=== PATIENT | male | born 1945 | race Caucasian/White ===

== ENCOUNTER 2017-01-29 05:00 | Inpatient (IN) ==
--- NOTE | 2017-01-10 15:15 | EKG Report ---
Stationary ECG Study [facility] Test Date: 01/10/2017 3:15:54 PM Pat Name: ANAT MOLINA Department: Room: Gender: M [employer] Operator: SEAN 01-[birth year]17 : 1945 Requested by: Cresencio Castillo Order Number: [id number] Reading MD: MERISSA ESPINOZA Intervals Palmer Rate: 60 P: 68 SD: 174 QRS: -25 QRSD: 130 T: -12 QT: 428 QTc: 429 Interpretive Statements SINUS RHYTHM BORDERLINE LEFT AXIS DEVIATION MODERATE INTRAVENTRICULAR CONDUCTION DELAY MODERATE VOLTAGE CRITERIA FOR LVH, CONSIDER NORMAL VARIANT NONSPECIFIC T-WAVE ABNORMALITY Electronically Signed On 01-11-17 08:29:57 CDT by MERISSA ESPINOZA [email or web address]
[2017-01-10 15:17] LABS: Basophils # 0.1 10*3/uL (0.0-0.2); Basophils % 1.1 % (0.0-0.8); Eosinophils # 0.2 10*3/uL (0.0-0.87); Eosinophils % 2.5 % (0.00-10.9); Hematocrit 38.5 VOL% (42.0-52.0); Hemoglobin 13.3 GM/DL (14.0-18.0); Immature Granulocytes % 0.3 %; Immature Granulocytes Absolute 0.02 #; Lymphocytes # 2.5 10*3/uL (1.4-4.0); Lymphocytes % 32.8 % (21.2-54.2); Mean Corpuscular HGB Conc 34.5 GM/DL (32-36); Mean Corpuscular Hemoglobin 29 PG (27-34); Mean Corpuscular Volume 84.4 FL (87-102); Mean Platelet Volume 10.2 FL (9.6-12.0); Monocytes # 0.7 10*3/uL (0.11-0.8); Monocytes % 8.7 % (1.7-12.7); Neutrophils # 4.1 10*3/uL (1.4-7.4); Neutrophils % 54.6 % (38.7-73.9); Platelet Count 283 T/CUMM (130-400); Red Blood Count 4.56 MC/CUMM (3.8-5.5); Red Cell Distribution Width 14.7 % (9.3-17.3); White Blood Count 7.5 T/CUMM (4-12)
[2017-01-10 15:26] LABS: PT Patient Result 10.7 SECS; Partial Thromboplastin Time 27.8 SECS (0-40)
[2017-01-10 15:49] LABS: Apearance,Urine CLEAR (Clear); Bilirubin,Urine Negative (Negative); Blood, Urine Negative (Negative); Glucose,Urine (UA) Negative (Negative); Ketones,Urine 5 mg/dL (Negative); Mucus,Urine Occasional /LPF (Occasional); Nitrite,Urine Negative (Negative); Protein,Urine Negative; RBC,Urine <1 /HPF (0-4); Urine Color Yellow (Yellow); Urine Urobilinogen < 2.0 EU/DL (0.2-1.0); WBC,Urine <1 /HPF (0-6)
--- NOTE | 2017-01-10 16:26 | XRay Report ---
XR chest 2V Indication: Preop evaluation Comparison: Chest x-ray dated April 21, 2010 Technique: Frontal and lateral views of the chest. Findings: The cardiomediastinal silhouette is stable in configuration. Chronic change of the lungs without focal consolidation, pleural effusion, or pneumothorax. Visualized osseous and surrounding soft tissue structures appear grossly unchanged. Multilevel bridging osteophytes of the thoracic spine. Rectangular metallic density projects over the left upper quadrant on frontal view and not seen on lateral view, most likely outside the patient. Clinically correlate. IMPRESSION: Stable chest x-ray without acute cardiopulmonary process demonstrated. PROCEDURE INTERPRETED AT [facility] DEPARTMENT OF RADIOLOGY Final Report Signed by: Dr Juan Carlos Yañez
[2017-01-10 16:29] LABS: Albumin 4.1 G/DL (3.4-5.0); Bilirubin,Total 0.6 MG/DL (0.2-1.0); Potassium 4.7 MMOL/L (3.5-5.1); Total Protein 6.3 G/DL (6.4-8.3)
[2017-01-29] MEDS ORDERED: FAMOTIDINE 20 MG TABLET PO ONE (06:00)
[2017-01-29] MEDS ORDERED: LORazepam 0.5 MG TABLET PO ONE (06:00)
[2017-01-29] MEDS ORDERED: FAMOTIDINE 20 MG TABLET ONE (06:02)
[2017-01-29] MEDS ORDERED: CLINDAMYCIN INJ 0 ML IV ONE (06:02)
[2017-01-29] MEDS ORDERED: VANCOMYCIN 1,000 MG VIAL ONE (06:02)
[2017-01-29] MEDS ORDERED: LORazepam 0.5 MG TABLET ONE (06:02)
[2017-01-29] MEDS ORDERED: LACTATED RINGERS 1,000 ML IV SCH (06:30)
[2017-01-29] MEDS ORDERED: CLINDAMYCIN INJ 900 MG in PREMIX 1 EACH IV ONE (06:30)
[2017-01-29] MEDS ORDERED: VANCOMYCIN INJ 1,000 MG in SODIUM CHLORIDE 0.9% 250 ML IV ONE ×2 (06:30→16:30)
[2017-01-29] MEDS ORDERED: TRANEXAMIC ACID 1,000 MG/10 ML VIAL IV ONE (06:42)
--- NOTE | 2017-01-29 06:51 | History and Physical Update ---
History and Physical Update - History and Physical H&P was reviewed, the patient examined and there: are no changes in the patients condition since last H&P was completed.
[2017-01-29] MEDS ORDERED: BACITRACIN OINT 0.9 GM PACK TOP ONE (06:57)
[2017-01-29] MEDS ORDERED: LIDOCAINE 2% 5 ML VIAL ONE (07:04)
[2017-01-29] MEDS ORDERED: PROPOFOL 200 MG/20 ML VIAL IV ONE (07:04)
[2017-01-29] MEDS ORDERED: CLINDAMYCIN INJ 50 ML IV ONE (07:29)
[2017-01-29] MEDS ORDERED: MORPHINE 2 MG/1 ML SYRINGE IV PRN ×2 (08:29)
[2017-01-29] MEDS ORDERED: ONDANSETRON 4 MG/2 ML VIAL IV PRN (08:29)
[2017-01-29] MEDS ORDERED: MAGNESIUM HYDROXIDE SUSP 30 ML UDCUP PO PRN (08:29)
[2017-01-29] MEDS ORDERED: oxyCODONE IR 5 MG TABLET PO PRN ×2 (08:29)
[2017-01-29] MEDS ORDERED: INSULIN ASPART PROTAMINE/ASPART 70/30 100 UNIT/ML SUBCUT SCH (08:30)
[2017-01-29] MEDS ORDERED: ROPIVACAINE 0.5% 30 ML VIAL ONE (08:32)
--- NOTE | 2017-01-29 08:35 | Operative Note ---
Date of procedure: 01/29/17 Procedure: DIAGNOSIS: Right knee primary osteoarthrosis PROCEDURE: Right total knee arthroplasty (cpt #20907) SURGEON: [facility] RN: Noel Cramer ANESTHESIA: Spinal with a postoperative adductor canal block PROCEDURE and FINDINGS: After adequate was induced, the patient's knee was prepped and draped in the usual sterile fashion. The limb was exsanguinated with Esmarch. Tourniquet was inflated to 300 mmHg. A median parapatellar approach was made. Femur was cut using an intramedullary guide and a 4 in 1 cutting jig in 5 degrees of valgus. ACL and menisci were excised. Tibia was cut using intramedullary guide. Patella was cut using freehand technique. Components were trialed. Tibial fin was prepared. Components are cemented in place using Palacos cement and modern cementing techniques. Cement was removed. A 1/8 inch Hemovac drain was placed. The knee was well-balanced and full range of motion with central tracking patella. Deep layers closed with 0-0 Vicryl. Superficial layers were closed with 2-0 and 3-0 Vicryl. Skin was approximated with romina. Bacitracin and a sterile dressing was applied. Patient was transferred to recovery. A postoperative adductor canal block is anticipated. COMPONENTS: The [place] Person[employer] system was used. 10 CR femur, F natural tibia, 10 mm liner, 35 mm patella TOURNIQUET TIME: 38 minutes Surgeon / Physician: Cresencio Guaman Jr. Results - Labs CBC & BMP: 01/10/17 15:05 01/10/17 15:05 Discharge Plan - Discharge Medications No Action Pantoprazole Tab [Protonix Tab] 40 mg PO DAILY Amiodarone Tab [Cordarone Tab] 200 mg PO BEDTIME metFORMIN [Glucophage] 500 mg PO BID W/MEALS Quinapril HCl 40 mg PO DAILY Magnesium Chloride [Magnesium Dr] 64 mg PO DAILY Aspirin [Ecotrin] 81 mg PO QOTHER DAY Insulin Aspart Prot/Asp 70/30 [NovoLOG Mix 70/30] 18 unit SUBCUT DIRECTED Lovastatin 20 mg PO BEDTIME - Follow Up or Referral - Forms/Instructions
[2017-01-29] MEDS: LACTATED RINGERS 1,000 ML IV SCH ×2 (08:40→23:55)
[2017-01-29] MEDS ORDERED: MIDAZOLAM 2 MG/2 ML VIAL ONE (08:57)
[2017-01-29] MEDS ORDERED: ACETAMINOPHEN 1,000 MG/100 ML VIAL IV ONE (08:57)
[2017-01-29] MEDS ORDERED: LACTATED RINGERS 1,000 ML IV ONE (08:57)
[2017-01-29] MEDS ORDERED: SODIUM CHLORIDE 0.9% 100 ML IV ONE (08:57)
[2017-01-29] MEDS ORDERED: SODIUM CHLORIDE 0.9% 250 ML IV ONE (08:57)
[2017-01-29] MEDS: KETOROLAC 30 MG/1 ML VIAL IV SCH ×3 (09:25→21:26)
[2017-01-29] MEDS ORDERED: KETOROLAC 30 MG/1 ML VIAL ONE (09:26)
--- NOTE | 2017-01-29 09:42 | XRay Report ---
XR knee 2V RT Clinical Information: Joint replacement (right knee) Comparison: 08/14/2016 radiograph Findings: Postsurgical changes of interval right total knee arthroplasty noted. Overlying surgical drains and romina noted. Soft tissue thickening is noted, as expected. Impression: Postoperative findings without acute complication.. PROCEDURE INTERPRETED AT [facility] DEPARTMENT OF RADIOLOGY Final Report Signed by: Porfirio Boyd
[2017-01-29] MEDS ORDERED: DEXTROSE 50% 25 GM/50 ML VIAL IV PRN (10:08)
[2017-01-29] MEDS ORDERED: GLUCAGON 1 MG VIAL IM PRN (10:08)
--- NOTE | 2017-01-29 10:43 | Pulmonology Consult Note ---
History of Present Illness Chief complaint: Postop right total knee. Spinal anesthesia History of present illness: Mr. Sepulveda is a 71 year old white male whom I been asked to see and manage his medical problems and is postop. Patient was seen along with his . Earlier this morning he had spinal anesthesia for right total knee replacement. At the present time the patient is awake and alert he is in no apparent distress. He is concerned that he may have constipation. His review of systems is otherwise negative at present time. Allergies. Penicillins Home medicines. See below. Metformin. Quinapril Prevacid magnesium lovastatin insulin 7030 aspirin amiodarone 200 mg daily. Pneumovax. 07/23/2015. Influenza vaccine 05/23/2016 Past history. Insulin-dependent diabetes mellitus. Hyperlipidemia. Atrial fib. High blood pressure. Gastroesophageal reflux. Previous knee surgery. Family history. High blood pressure. Diabetes mellitus Social history. Former smoker. . Bachelor's degree. Patient saw Dr. Cayetano brewster 10/27/[address] José Conti 03/14/16 Chest x-ray. 01/10/2017. Chronic change of the lungs without focal consolidation, pleural effusion or pneumothorax. Visualized osseous and surrounding soft tissue structures are unchanged with multilevel bridging osteophytes of the thoracic spine. Reticular metallic density over the left upper quadrant on frontal view. Not seen on lateral view. EKG. 01/11/2017 regular sinus rhythm. Incomplete right bundle branch. Left bundle branch block Lab. 01/10/2017. H&H 13.3/38.5. Platelets 283,000. White count 7500. INR 1.0. Electrolytes are normal. Creatinine is 1.40 with a BUN of 19. Glucose 184. Total protein 6.3. Albumin 4.1. Globulin 2.2. Alkaline Letty transaminases and bilirubin are normal. Urinalysis is normal Physical exam. Vital signs. See below. Psychiatric. Oriented 3. Awake and alert. No distress. Head eyes ears nose and throat are normal. No swelling of the lips or tongue. Neck. Symmetrical. No mass. Thyroid was not palpated no meningismus. Lymphatics. No submandibular cervical supraclavicular or epitrochlear adenopathy. Chest. Clear Heart irregular at 75 bpm Abdomen. Nontender. Bowel sounds are hypoactive and rectal deferred Extremities. No edema. Postsurgical repair of right knee Neurologic cranial nerves are intact. Patient has some movement of all 4 extremities. Minimal movement of both lower Skin of the face and hands was normal. No other areas examined. The remainder the physical exam is negative Impression. 1. Postop right total knee replacement. 2. Degenerative joint disease 3. Diabetes mellitus 4. High blood pressure 5. Atrial fib 6. Gastroesophageal reflux disease Plan. 1. Continue home medicines. 2. Monitor glucoses 3. monitor heart rate 4. Note tendency towards obstipation with pain medicine 5. Deep venous thrombophlebitis prevention protocol 6. Follow-up lab Home Medications Medication Instructions Recorded Confirmed Type Amiodarone Tab [Cordarone Tab] 200 mg PO BEDTIME 06/03/16 01/29/17 History Aspirin [Ecotrin] 81 mg PO QOTHER DAY 06/03/16 01/29/17 History Magnesium Chloride [Magnesium Dr] 64 mg PO DAILY 06/03/16 01/29/17 History Pantoprazole Tab [Protonix Tab] 40 mg PO DAILY 06/03/16 01/29/17 History Quinapril HCl 40 mg PO DAILY 06/03/16 01/29/17 History metFORMIN [Glucophage] 500 mg PO BID W/MEALS 06/03/16 01/29/17 History Lovastatin 20 mg PO BEDTIME 08/14/16 01/29/17 History Insulin Aspart Prot/Asp 70/30 0 unit SUBCUT BID W/MEALS PRN 01/11/17 01/29/17 History [NovoLOG Mix 70/30] Allergies Allergy/AdvReac Type Severity Reaction Status Date / Time Penicillins Allergy Intermediate Fainting Verified 01/29/17 06:21 sweaty clammy Exam (Pulmonay) H&P - Constitutional Vitals: Period Temp Pulse Resp BP Sys/Khanna Pulse Ox Last 24 Hr 97.1 F-98 F 43-69 14-20 101-157/58-90 97-100 Medical,Surgical,& Family Hx - Medical History Cardio: History of: Cardiac Dysrhythmia (paroxysmal A. fib), Hypertension Neurology: No history of: Seizures Endocrine: History of: Diabetes Mellitus (IDDM) Respiratory: No history of: COPD, Respiratory Problems (HAD FLU VACCINE AND PNEUM 13 VACCINE) Genitourinary: History of: Kidney Stones Hematology: No history of: Blood Transfusion Reaction Other: History of: Miscellaneous Medical Problems (PATIENT DOESNT TOLERATE OPIATES) No history of: Anesthesia Reactions - Surgical History Cardiac Surgeries: Patient Denies: Cardiac Catheterization Thoracic Surgeries: Patient denies;: Organ Transplant, Lobectomy HEENT Surgeries: Surgical HX of: Eye Surgery (Bilateral Cataracts) Abdominal Surgeries: Surgical HX of: [facility] Orthopedic Surgeries: Surgical HX of;: Total Knee Replacement ( 07/2016) - Family History Family History: Reports;: Family Cancer (Grandmother-ovarian) - Social History Smoking Status: Never smoker Frequency of Alcohol Use: None Type of Drug Use: None Results - Labs CBC & BMP: 01/10/17 15:05 01/10/17 15:05
[2017-01-29] MEDS: QUINAPRIL 20 MG TABLET PO SCH (11:27)
[2017-01-29] MEDS: INSULIN LISPRO 100 UNIT/ML SUBCUT SCH ×3 (12:25→21:47)
--- NOTE | 2017-01-29 12:39 | Anesthesia Post-Op ---
Anesthesia Post OP - Post Ansesthetic Evaluation Patient seen in post op: Yes Resp: within normal limits CV: within normal limits Mental: within normal limits Temp: within normal limits [id number]: within normal limits Nausea and Vomiting: within normal limits Pain: within normal limits
--- NOTE | 2017-01-29 14:13 | Orthopedic Progress Note ---
Orthopedics - Subjective Interval history: comfortable post op. nv ok. continue per orders. Exam - Constitutional Vitals: Period Temp Pulse Resp BP Sys/Khanna Pulse Ox Last 24 Hr 97.1 F-98 F 42-69 14-20 101-158/58-90 95-100 Results - Labs CBC & BMP: 01/10/17 15:05 01/10/17 15:05
[2017-01-29] MEDS: ACETAMINOPHEN 500 MG TABLET PO SCH ×2 (15:49→18:32)
[2017-01-29] MEDS: DOCUSATE SODIUM 100 MG CAPSULE PO SCH ×2 (15:50→21:27)
[2017-01-29] MEDS: PANTOPRAZOLE 40 MG TABLET PO SCH (15:50)
[2017-01-29] MEDS: MAGNESIUM CHLORIDE 64 MG TABLET PO SCH (15:51)
[2017-01-29] MEDS: CLINDAMYCIN INJ 900 MG in PREMIX 1 EACH IV SCH ×2 (15:54→21:26)
[2017-01-29] MEDS: metFORMIN 500 MG TABLET PO SCH (17:19)
[2017-01-29] MEDS: AMIODARONE 200 MG TABLET PO SCH ×2 (21:26→21:28)
[2017-01-29] MEDS: LOVASTATIN 20 MG TABLET PO SCH (21:26)
[2017-01-30] MEDS: ACETAMINOPHEN 500 MG TABLET PO SCH ×2 (00:59→06:51)
[2017-01-30] MEDS: FONDAPARINUX 2.5 MG/0.5 ML SYRINGE SUBCUT SCH (02:43)
[2017-01-30] MEDS: KETOROLAC 30 MG/1 ML VIAL IV SCH (02:43)
[2017-01-30 06:08] LABS: Basophils % 0.5 % (0.0-0.8); Eosinophils # 0.1 10*3/uL (0.0-0.87); Eosinophils % 2.1 % (0.00-10.9); Hematocrit 33.4 VOL% (42.0-52.0); Hemoglobin 11.3 GM/DL (14.0-18.0); Immature Granulocytes % 0.3 %; Immature Granulocytes Absolute 0.02 #; Lymphocytes # 1.5 10*3/uL (1.4-4.0); Mean Corpuscular HGB Conc 33.8 GM/DL (32-36); Mean Corpuscular Hemoglobin 30 PG (27-34); Mean Corpuscular Volume 87.2 FL (87-102); Mean Platelet Volume 10.5 FL (9.6-12.0); Monocytes # 0.7 10*3/uL (0.11-0.8); Monocytes % 11.8 % (1.7-12.7); Neutrophils # 3.5 10*3/uL (1.4-7.4); Neutrophils % 60.3 % (38.7-73.9); Platelet Count 198 T/CUMM (130-400); Red Blood Count 3.83 MC/CUMM (3.8-5.5); Red Cell Distribution Width 14.7 % (9.3-17.3); White Blood Count 5.9 T/CUMM (4-12)
[2017-01-30 06:36] LABS: Calcium 7.8 MG/DL (8.5-10.1); Osmolality,Calculated 282.3 MOS/KG (273-304); Potassium 4.5 MMOL/L (3.5-5.1)
--- NOTE | 2017-01-30 07:33 | Orthopedic Progress Note ---
Orthopedics - Subjective Interval history: comfortable nv ok. dressing dry. mobilize with therapy. plan for swing bed Exam - Constitutional Vitals: Period Temp Pulse Resp BP Sys/Khanna Pulse Ox Last 24 Hr 97.1 F-98.0 F 42-69 14-18 101-158/48-87 95-100 Results - Labs CBC & BMP: 01/30/17 05:11 01/30/17 05:11
[2017-01-30] MEDS: QUINAPRIL 20 MG TABLET PO SCH (08:09)
[2017-01-30] MEDS: INSULIN LISPRO 100 UNIT/ML SUBCUT SCH ×4 (08:11→21:44)
[2017-01-30] MEDS: metFORMIN 500 MG TABLET PO SCH ×2 (08:13→17:57)
[2017-01-30] MEDS: MAGNESIUM CHLORIDE 64 MG TABLET PO SCH (08:13)
[2017-01-30] MEDS: PANTOPRAZOLE 40 MG TABLET PO SCH (08:14)
[2017-01-30] MEDS: DOCUSATE SODIUM 100 MG CAPSULE PO SCH ×2 (08:14→20:43)
[2017-01-30] MEDS ORDERED: ACETAMINOPHEN 325 MG TABLET PO PRN (08:30)
--- NOTE | 2017-01-30 10:17 | Pulmonology Progress Note ---
Pulmonary - PN: Subj Interval history: This is a 71-year-old white male whom I saw in consultation on 01/29/2017. My impressions were. 1.. Postop right total knee replacement. 2. Degenerative joint disease 3. Diabetes mellitus 4. High blood pressure 5. Atrial fib 6. Gastroesophageal reflux disease 01/30/2017. Patient was seen along with his and physical therapy. He is doing very well he had no new complaints. He did not get his insulin yesterday and his glucoses were up. Creatinine is 1.1 with a BUN of 12. Electrolytes are normal. H&H dropped to 11.3/33.4. White count is 5900 with 60 segs 25 lymphs and 12 monos. Platelets are 198,000. Physical exam. Vital signs. See below. Afebrile Psychiatric. Oriented 3 General. No distress Neurologic. Cranial nerves are intact. Long track motor functions intact Face. Symmetrical. No edema of the tongue are lips. Neck. Symmetrical. No meningismus. Chest. Clear Heart. No gallop Abdomen. Nondistended nontender. Rare bowel sounds Extremities. Postop. No evidence of deep venous thrombophlebitis. The remainder the exam is negative Plan. 01/29/2017 1. Continue home medicines. 2. Monitor glucoses 3. monitor heart rate 4. Note tendency towards obstipation with pain medicine 5. Deep venous thrombophlebitis prevention protocol 6. Follow-up lab 01/30/2017. 1. Monitor glucose. 2. CBC in the morning 3. Continue present medicines and treat meant Exam (Progress Note) - Constitutional Vitals: Period Temp Pulse Resp BP Sys/Khanna Pulse Ox Last 24 Hr 97.1 F-98.0 F 42-59 16-18 106-158/48-87 94-100 Results - Labs CBC & BMP: 01/30/17 05:11 01/30/17 05:11
[2017-01-30] MEDS: CELECOXIB 200 MG CAPSULE PO SCH (15:23)
[2017-01-30] MEDS: LACTATED RINGERS 1,000 ML IV SCH (17:58)
[2017-01-30] MEDS: LOVASTATIN 20 MG TABLET PO SCH (20:43)
[2017-01-30] MEDS: AMIODARONE 200 MG TABLET PO SCH (20:44)
[2017-01-31] MEDS: FONDAPARINUX 2.5 MG/0.5 ML SYRINGE SUBCUT SCH (03:15)
[2017-01-31 06:13] LABS: Basophils % 0.5 % (0.0-0.8); Eosinophils # 0.2 10*3/uL (0.0-0.87); Eosinophils % 2.8 % (0.00-10.9); Hematocrit 33.5 VOL% (42.0-52.0); Hemoglobin 11.3 GM/DL (14.0-18.0); Immature Granulocytes % 0.6 %; Immature Granulocytes Absolute 0.04 #; Lymphocytes # 1.6 10*3/uL (1.4-4.0); Lymphocytes % 24.9 % (21.2-54.2); Mean Corpuscular HGB Conc 33.7 GM/DL (32-36); Mean Corpuscular Hemoglobin 29 PG (27-34); Mean Platelet Volume 10.6 FL (9.6-12.0); Monocytes # 0.8 10*3/uL (0.11-0.8); Monocytes % 12.3 % (1.7-12.7); Neutrophils # 3.8 10*3/uL (1.4-7.4); Neutrophils % 58.9 % (38.7-73.9); Platelet Count 206 T/CUMM (130-400); Red Blood Count 3.85 MC/CUMM (3.8-5.5); Red Cell Distribution Width 14.6 % (9.3-17.3); White Blood Count 6.5 T/CUMM (4-12)
[2017-01-31 06:43] LABS: Hypochromasia Slight
--- NOTE | 2017-01-31 07:43 | Discharge Summary ---
Hospital Course - Hospital Course Hospital Course: Will Sepulveda was admitted after undergoing an uncomplicated right total knee replacement. He recieved perioperative DVT and antimicrobial prophylaxis. He received physical therapy. He was discharged to inpatient rehabilitation postoperative day #2 in stable condition. His dressing is clean, dry and intact. He can perform straight leg raise. Discharge Plan - Discharge Data Disposition: Disch/Xfer to Snf Condition at Discharge: Stable Discharge Diet: diabetic diet Activity: ambulate only with your walker Hygiene: may shower Weight Bearing at Discharge: weight bear as tolerated Driving: not until seen by doctor - Discharge Medications New Insulin Lispro [HumaLOG] See Protocol SUBCUT ACHS unit Fondaparinux [Arixtra] 2.5 mg SUBCUT Q24H 10 Days Continue Pantoprazole Tab [Protonix Tab] 40 mg PO DAILY Amiodarone Tab [Cordarone Tab] 200 mg PO BEDTIME metFORMIN [Glucophage] 500 mg PO BID W/MEALS Quinapril HCl 40 mg PO DAILY Magnesium Chloride [Magnesium Dr] 64 mg PO DAILY Insulin Aspart Prot/Asp 70/30 [NovoLOG Mix 70/30] 0 unit SUBCUT BID W/MEALS PRN PRN Reason: Glucose Management Lovastatin 20 mg PO BEDTIME Discontinued Aspirin [Ecotrin] 81 mg PO QOTHER DAY - Follow Up or Referral - Forms/Instructions Additional Discharge Instructions: Daily dry dressing changes. Weightbearing as tolerated. CPM for 3 weeks. Arrange walker and bedside commode for home use. Wear SARATH hose for 1 month. Discontinue romina and Steri-Strip wound on February 10, 2017. Follow-up appointment in 4 weeks. Prescription for [place] 7.5 with 30 tablets was written. Restart aspirin 81 mg when Arixtra is stopped.. Exam - Constitutional Vitals: Period Temp Pulse Resp BP Sys/Khanna Pulse Ox Last 24 Hr 96.9 F-98.1 F 54-64 16-18 132-153/63-79 97-99 Discharge Results Procedures and tests throughout hospitalization: Pending Orders 02/01/17 04:00 Comp Blood Count Auto Diff IN AM Labs on day of discharge: Labs from last 24 hours 01/31/17 01/31/17 0717 07:14 05:49 20:11 WBC 6.5 RBC 3.85 Hgb 11.3 L Hct 33.5 L MCV 87.0 MCH 29 MCHC 33.7 RDW 14.6 Plt Count 206 MPV 10.6 Neut % (Auto) 58.9 Lymph % (Auto) 24.9 Loup % (Auto) 12.3 Eos % (Auto) 2.8 Baso % (Auto) 0.5 Neut # (Auto) 3.8 Lymph # (Auto) 1.6 [place]oup # (Auto) 0.8 Eos # (Auto) 0.2 Baso # (Auto) 0.0 Immature Gran % 0.6 Nucleated RBC % 0.0 Immature Gran # 0.04 Nucleated RBCs # 0.00 Hypochromasia Slight POC Glucose 143 H 203 H 01/30/17 01/30/17 01/30/17 15:15 13:16 10:59 WBC RBC Hgb Hct MCV MCH MCHC RDW Plt Count MPV Neut % (Auto) Lymph % (Auto) [place]oup % (Auto) Eos % (Auto) Baso % (Auto) Neut # (Auto) Lymph # (Auto) Loup # (Auto) Eos # (Auto) Baso # (Auto) Immature Gran % Nucleated RBC % Immature Gran # Nucleated RBCs # Hypochromasia POC Glucose 110 H 111 H 77 DS: Provider Date of admission: 01/29/17 05:40 Primary care physician: Cresencio Guaman Jr., Attending physician on admission: Cresencio Guaman Jr., Consults: 01/29/17 08:30 Consult to Case Mgmt/Social Srvs [CONS] Routine Reason for Case Mgmt/Social Srvs: Rehab Home Health Equipment Consult Comment: Bedside Commode deliver RM 324 Wed Morning before D/C; Pt 6ft 3in 311lbs Consult to Occupational Therapy [CONS] Routine Reason for Occupational Therapy: Evaluate and Treat Consult Comment: ADL's Consult to Physical Therapy [CONS] Routine Reason for Physical Therapy: Evaluate and Treat Gait Training Start Therapy: Today 01/29/17 10:05 Consult to Physician [CONS] Routine Comment: Consulting Provider: Ruben Rudolph Consulting Provider Notified: Yes When should Consulting Provider be notified: Now Person Notified: ralph piña Date Notified: 01/29/17 Time Notified: 10:07 01/30/17 18:44 Consult to Outpatient Therapy [CONS] Routine Reason for Outpatient Therapy: Physical Therapy Consult Comment: Pt is going to R f/Inpatient Rehab then set up OP Rehab @ [facility] OP Discharging clinician: Cresencio Guaman Jr., Expected date of discharge: 01/31/17
[2017-01-31] MEDS: INSULIN LISPRO 100 UNIT/ML SUBCUT SCH ×2 (08:42→13:26)
[2017-01-31] MEDS: PANTOPRAZOLE 40 MG TABLET PO SCH (09:05)
[2017-01-31] MEDS: MAGNESIUM CHLORIDE 64 MG TABLET PO SCH (09:05)
[2017-01-31] MEDS: DOCUSATE SODIUM 100 MG CAPSULE PO SCH (09:05)
[2017-01-31] MEDS: QUINAPRIL 20 MG TABLET PO SCH (09:06)
[2017-01-31] MEDS: metFORMIN 500 MG TABLET PO SCH (09:06)
[2017-01-31] MEDS: CELECOXIB 200 MG CAPSULE PO SCH (09:55)
--- NOTE | 2017-01-31 11:00 | Pulmonology Progress Note ---
Pulmonary - PN: Subj Interval history: This is a 71-year-old white male whom I saw in consultation on 01/29/2017. My impressions were. 1.. Postop right total knee replacement. 2. Degenerative joint disease 3. Diabetes mellitus 4. High blood pressure 5. Atrial fib 6. Gastroesophageal reflux disease 01/30/2017. Patient was seen along with his and physical therapy. He is doing very well he had no new complaints. He did not get his insulin yesterday and his glucoses were up. Creatinine is 1.1 with a BUN of 12. Electrolytes are normal. H&H dropped to 11.3/33.4. White count is 5900 with 60 segs 25 lymphs and 12 monos. Platelets are 198,000. 01/31/2017. This patient is usually very stoic. Today he is complaining of pain in his right knee. He was late getting his pain pill and have asked staff to give him another 1 immediately. Otherwise he has no complaints. He seen along with his . His chest is clear and his heart is regular. H&H is stable at 11.3/33.5. White count 6500 with normal differential and platelets of 206,000. Glucoses have come under excellent control. Physical exam. Vital signs. See below. Afebrile Psychiatric. Oriented 3 General. No distress Neurologic. Cranial nerves are intact. Long track motor functions intact Face. Symmetrical. No edema of the tongue are lips. Neck. Symmetrical. No meningismus. Chest. Clear Heart. No gallop Abdomen. Nondistended nontender. Rare bowel sounds Extremities. Postop. No evidence of deep venous thrombophlebitis. The remainder the exam is negative Plan. 01/29/2017 1. Continue home medicines. 2. Monitor glucoses 3. monitor heart rate 4. Note tendency towards obstipation with pain medicine 5. Deep venous thrombophlebitis prevention protocol 6. Follow-up lab 01/30/2017. 1. Monitor glucose. 2. CBC in the morning 3. Continue present medicines and treat meant 01/31/2017. 1. See today's note above. 2. Pain in right knee. Previously pain was under good control. Watch Exam (Progress Note) - Constitutional Vitals: Period Temp Pulse Resp BP Sys/Khanna Pulse Ox Last 24 Hr 96.9 F-98.1 F 54-64 16-18 132-153/63-79 97-99 Results - Labs CBC & BMP: 01/31/17 05:49 01/30/17 05:11 Specialty Discharge - Follow Up or Referrals Follow up with: Cresencio Guaman Jr., MD [Primary Care Provider] - 03/01/17 12:45 pm
--- NOTE | 2017-01-31 13:12 | Pathology Report from [facility] ---
[facility] [place] ACCESSION # : [id number] PATIENT NAME : Will Molina ORDERING DR : TEOFILO MENDEZ MD CLINICAL HX: Right knee osteoarthritis POST-OP DX: Same SPECIMEN INFO: Right knee GROSS DESCRIPTION: Received in formalin labeled WILL MOLINA is an aggregate of bone, soft tissue and cartilage measuring 14.0 x 7.0 cm. The articular surfaces are focally degenerative with two small areas of subchondral eburnation noted. Discharge Door Operator tissue is submitted in one cassette. DIAGNOSIS FOR WILL MOLINA: Fragments of right knee joint showing changes of degenerative joint disease/ osteoarthritis. COLLECTED DATE: 01/29/2017 [facility] [place] REPORT DATE: 01/30/2017 ELECTRONICALLY SIGNED BY: Se Monreal M.D. 01/30/2017 - 9:29:31 [facility]
[2017-01-31 16:36] VITALS: BP 158/71
== END 2017-01-31 16:30 | DRG 470 ==
LOC: N.SDSINP 05:40 → N.3E 10:02
PROVIDERS: ADMIT Orthopaedic Surgery; ATTEND Orthopaedic Surgery

== ENCOUNTER 2017-07-02 07:43 | Inpatient (IN) ==
[2017-06-26 10:24] LABS: Basophils % 0.7 % (0.0-0.8); Eosinophils # 0.1 10*3/uL (0.0-0.87); Eosinophils % 2.2 % (0.00-10.9); Hemoglobin 12.9 GM/DL (14.0-18.0); Immature Granulocytes % 0.6 %; Immature Granulocytes Absolute 0.03 #; Lymphocytes # 1.4 10*3/uL (1.4-4.0); Lymphocytes % 26.5 % (21.2-54.2); Mean Corpuscular HGB Conc 33.9 GM/DL (32-36); Mean Corpuscular Hemoglobin 29 PG (27-34); Mean Corpuscular Volume 83.9 FL (87-102); Monocytes # 0.7 10*3/uL (0.11-0.8); Monocytes % 13.3 % (1.7-12.7); Neutrophils % 56.7 % (38.7-73.9); Platelet Count 286 T/CUMM (130-400); Red Blood Count 4.53 MC/CUMM (3.8-5.5); Red Cell Distribution Width 14.8 % (9.3-17.3); White Blood Count 5.4 T/CUMM (4-12)
[2017-06-26 10:58] LABS: Calcium 8.5 MG/DL (8.5-10.1); Osmolality,Calculated 286.1 MOS/KG (273-304); Potassium 4.2 MMOL/L (3.5-5.1); Total Protein 6.5 G/DL (6.4-8.3)
[~2017-07-02 07:43] MED LIST: ceFAZolin 1,000 MG VIAL IV ONE
[2017-07-02] MEDS ORDERED: MAGNESIUM SULF RIDER 2 GM in PREMIX 1 EACH IV PRN (10:03)
[2017-07-02] MEDS ORDERED: POTASSIUM CHLORIDE RIDER 10 MEQ in PREMIX 1 EACH IV PRN (10:03)
[2017-07-02] MEDS ORDERED: DIAZEPAM 5 MG TABLET PO ONE (10:03)
[2017-07-02] MEDS ORDERED: diphenhydrAMINE CAP 25 MG CAPSULE PO ONE (10:03)
[2017-07-02] MEDS ORDERED: ceFAZolin 1,000 MG VIAL ONE (10:51)
[2017-07-02] MEDS ORDERED: DIAZEPAM 5 MG TABLET ONE (10:51)
[2017-07-02] MEDS ORDERED: diphenhydrAMINE CAP 25 MG CAPSULE ONE (10:52)
[2017-07-02] MEDS: SODIUM CHLORIDE 0.9% 1,000 ML IV SCH (11:00)
[2017-07-02] MEDS ORDERED: HEPARIN/NACL 0.9% 2 UNITS/ML 1,000 ML IV ONE (11:06)
[2017-07-02] MEDS ORDERED: LIDOCAINE 1% 20 ML VIAL ONE (11:06)
[2017-07-02] MEDS ORDERED: NITROGLYCERIN DRIP 50 MG/250 ML BOTTLE IV ONE (11:06)
[2017-07-02] MEDS ORDERED: VERAPAMIL 5 MG/2 ML VIAL ONE (11:06)
[2017-07-02] MEDS ORDERED: HYDROmorphone 2 MG/1 ML VIAL ONE (11:39)
[2017-07-02] MEDS ORDERED: MIDAZOLAM 2 MG/2 ML VIAL ONE (11:39)
[2017-07-02] MEDS ORDERED: ENOXAPARIN 30 MG/0.3 ML SYRINGE ONE (11:55)
[2017-07-02] MEDS ORDERED: SODIUM CHLORIDE 0.9% 1,000 ML IV SCH (12:30)
[2017-07-02] MEDS: AMIODARONE 200 MG TABLET PO SCH (20:50)
[2017-07-02] MEDS: INSULIN ASPART PROTAMINE/ASPART 70/30 100 UNIT/ML SUBCUT SCH (20:50)
[2017-07-03] MEDS ORDERED: ceFAZolin 1,000 MG VIAL IV ONE (06:30)
[2017-07-03] MEDS: QUINAPRIL 20 MG TABLET PO SCH (06:35)
[2017-07-03] MEDS ORDERED: HEPARIN 5,000 UNIT/1 ML VIAL ONE (07:26)
[2017-07-03] MEDS ORDERED: VANCOMYCIN 1,000 MG VIAL ONE (07:26)
[2017-07-03] MEDS: LACTATED RINGERS 1,000 ML IV SCH ×3 (07:59→21:14)
[2017-07-03] MEDS ORDERED: VANCOMYCIN INJ 500 MG in SODIUM CHLORIDE 0.9% 100 ML IV ONE (08:35)
[2017-07-03] MEDS ORDERED: ONDANSETRON 4 MG/2 ML VIAL IV PRN ×2 (09:26→10:09)
[2017-07-03] MEDS ORDERED: DEXTROSE 50% 25 GM/50 ML VIAL IV PRN (09:26)
[2017-07-03] MEDS ORDERED: GLUCAGON 1 MG VIAL IM PRN (09:26)
[2017-07-03] MEDS ORDERED: PROMETHAZINE 25 MG/1 ML VIAL IM PRN (09:26)
[2017-07-03] MEDS ORDERED: HYDROmorphone 2 MG/1 ML VIAL IV PRN ×2 (09:26→10:09)
[2017-07-03] MEDS ORDERED: NALOXONE 0.4 MG/ML VIAL IV PRN (09:26)
[2017-07-03] MEDS ORDERED: oxyCODONE/ACETAMINOPHEN 5-325 MG TABLET PO PRN ×2 (09:26)
[2017-07-03] MEDS ORDERED: ALBUTEROL 2.5 MG/3 ML NEB RESP TX ONE (09:54)
[2017-07-03] MEDS ORDERED: ALBUTEROL 1.25 MG/3 ML NEB RESP TX ONE ×2 (09:57→09:58)
[2017-07-03] MEDS ORDERED: PROPOFOL 200 MG/20 ML VIAL IV ONE (09:57)
[2017-07-03] MEDS ORDERED: MIDAZOLAM 2 MG/2 ML VIAL ONE (09:58)
[2017-07-03] MEDS ORDERED: fentaNYL 100 MCG/2 ML VIAL ONE (09:58)
[2017-07-03] MEDS ORDERED: HEPARIN 10,000 UNIT/10 ML VIAL ONE (09:58)
[2017-07-03] MEDS ORDERED: DESFLURANE 1 UNIT/15 MINUTE INH ONE (09:58)
[2017-07-03] MEDS ORDERED: PHENYLEPHRINE DRIP 20 MG/250 ML PREMIX IV ONE (09:58)
[2017-07-03] MEDS ORDERED: ONDANSETRON 4 MG/2 ML VIAL ONE (09:58)
[2017-07-03] MEDS ORDERED: GLYCOPYRROLATE 0.4 MG/2 ML VIAL ONE (09:58)
[2017-07-03] MEDS ORDERED: SODIUM CHLORIDE 0.9% 1,000 ML IV ONE (09:59)
[2017-07-03] MEDS ORDERED: NITROGLYCERIN DRIP 50 MG/250 ML BOTTLE IV ONE (09:59)
[2017-07-03] MEDS ORDERED: ROCURONIUM 100 MG/10 ML VIAL IV ONE (09:59)
[2017-07-03] MEDS ORDERED: LACTATED RINGERS 1,000 ML IV ONE (09:59)
[2017-07-03] MEDS ORDERED: PROTAMINE SULFATE 50 MG/5 ML VIAL IV ONE (09:59)
[2017-07-03] MEDS ORDERED: NEOSTIGMINE 10 MG/10 ML VIAL ONE (09:59)
[2017-07-03] MEDS: SODIUM CHLORIDE 0.9% 1,000 ML IV SCH (12:00)
[2017-07-03] MEDS: NITROPRUSSIDE 100 MG in DEXTROSE 5% 250 ML IV SCH ×3 (12:00→23:13)
[2017-07-03] MEDS ORDERED: NITROPRUSSIDE 50 MG/2 ML VIAL ONE (12:26)
[2017-07-03] MEDS: INSULIN ASPART PROTAMINE/ASPART 70/30 100 UNIT/ML SUBCUT SCH ×2 (13:58→21:13)
[2017-07-03] MEDS: HYDROmorphone 2 MG/1 ML VIAL IV PRN ×3 (14:28→21:13)
[2017-07-03] MEDS: PANTOPRAZOLE 40 MG TABLET PO SCH (14:29)
[2017-07-03] MEDS: MAGNESIUM CHLORIDE 64 MG TABLET PO SCH (14:29)
[2017-07-03] MEDS: ASPIRIN EC 81 MG TABLET PO SCH (14:29)
[2017-07-03] MEDS: ROSUVASTATIN 10 MG TABLET PO SCH (14:29)
[2017-07-03] MEDS: PHENYLEPHRINE DRIP 40 MG/250 ML PREMIX IV SCH (14:30)
[2017-07-03] MEDS: AMIODARONE 200 MG TABLET PO SCH (21:13)
[2017-07-04] MEDS: NITROPRUSSIDE 100 MG in DEXTROSE 5% 250 ML IV SCH ×5 (01:40→13:01)
[2017-07-04] MEDS ORDERED: DEXTROSE 50% 25 GM/50 ML VIAL IV PRN (08:14)
[2017-07-04] MEDS ORDERED: GLUCAGON 1 MG VIAL IM PRN (08:14)
[2017-07-04] MEDS: ROSUVASTATIN 10 MG TABLET PO SCH (10:12)
[2017-07-04] MEDS: MAGNESIUM CHLORIDE 64 MG TABLET PO SCH (10:12)
[2017-07-04] MEDS: ASPIRIN EC 81 MG TABLET PO SCH (10:14)
[2017-07-04] MEDS: QUINAPRIL 20 MG TABLET PO SCH (10:14)
[2017-07-04] MEDS: APIXABAN 5 MG TABLET PO SCH ×2 (10:14→21:59)
[2017-07-04] MEDS: INSULIN ASPART PROTAMINE/ASPART 70/30 100 UNIT/ML SUBCUT SCH ×2 (10:15→21:59)
[2017-07-04] MEDS: PANTOPRAZOLE 40 MG TABLET PO SCH (10:15)
[2017-07-04] MEDS: PHENYLEPHRINE DRIP 40 MG/250 ML PREMIX IV SCH (10:26)
[2017-07-04] MEDS: LACTATED RINGERS 1,000 ML IV SCH ×2 (10:30)
[2017-07-04] MEDS: CARVEDILOL 6.25 MG TABLET PO SCH ×2 (14:32→21:59)
[2017-07-04] MEDS: AMIODARONE 200 MG TABLET PO SCH (21:59)
[2017-07-04] MEDS ORDERED: diphenhydrAMINE CAP 50 MG CAPSULE PO PRN (22:09)
[2017-07-05] MEDS: APIXABAN 5 MG TABLET PO SCH (08:59)
[2017-07-05] MEDS: QUINAPRIL 20 MG TABLET PO SCH (08:59)
[2017-07-05] MEDS: MAGNESIUM CHLORIDE 64 MG TABLET PO SCH (09:00)
[2017-07-05] MEDS: PANTOPRAZOLE 40 MG TABLET PO SCH (09:00)
[2017-07-05] MEDS: ASPIRIN EC 81 MG TABLET PO SCH (09:00)
[2017-07-05] MEDS: CARVEDILOL 6.25 MG TABLET PO SCH (09:00)
[2017-07-05] MEDS: ROSUVASTATIN 10 MG TABLET PO SCH (09:01)
[2017-07-05] MEDS: INSULIN ASPART PROTAMINE/ASPART 70/30 100 UNIT/ML SUBCUT SCH (09:02)
[2017-07-05] MEDS: PHENYLEPHRINE DRIP 40 MG/250 ML PREMIX IV SCH (14:51)
[2017-07-05] MEDS: NITROPRUSSIDE 100 MG in DEXTROSE 5% 250 ML IV SCH (14:51)
[2017-07-05 16:09] VITALS: BP 144/69
[2017-07-05] MEDS ORDERED: metFORMIN 500 MG TABLET PO SCH (17:00)
== END 2017-07-05 16:35 | disposition home or self-care (01) | DRG 39 ==
LOC: N.OR 07:43 → N.SDSINP 07:43 → N.3E 12:43 → N.CC 07-03 12:09 → EDSDCBED 07-05 11:08 → N.3E 07-05 11:08 → N.OR 07-05 16:35 → UNDODEPSDC 07-09 09:47
PROVIDERS: ADMIT Surgery; ATTEND Surgery
PROC: CLCCHCL (ICD-10-PCS; 2017-07-02 10:15)